=== PATIENT | male | born 1980 | race Caucasian/White ===

== ENCOUNTER 2017-02-08 16:18 | Emergency (ER) | payer SELFPAY ==
[~2017-02-08] VITALS: Ht 208.3 cm; Wt 93.0 kg
[2017-02-08 16:20] VITALS: BP 138/84; PULSE 82; RESP 20; TEMP 97.4; O2SAT 96
[2017-02-08 16:30] VITALS: BP 136/92; PULSE 80; RESP 18; O2SAT 99
--- NOTE | 2017-02-08 16:41 | PD ---
HPI Chief Complaint: Respiratory Distress Time Seen by Provider: 16:33 Travel History International Travel<30 days: No Contact w/Intl Traveler<30days: No Traveled to known affect area: No History of Present Illness HPI Healthy 36-year-old male here with complaint of shortness of breath and cough. Patient states that he has been ill for the last 2-3 weeks with cough, chest congestion. Cough is productive primarily of clear sputum. He denies any fevers or chills. Patient has noticed wheezing for the last 2 weeks. He denies any history of underlying lung disease, COPD, asthma, etc. No recent travel, sick contacts. Patient comes the ED with his mother today after multiple prompts from her to be seen. PFSH Past Medical History Medical History: Denies Significant Hx Social History Alcohol Use: Yes Tobacco Use: No Allergies-Medications (Allergen,Severity, Reaction): Coded Allergies: No Known Allergies (Verified Allergy, Unknown, 04/24/06) Reported Meds & Prescriptions Reported Meds & Active Scripts Active No Active Prescriptions or Reported Medications Review of Systems Except as stated in HPI: all other systems reviewed are Neg Physical Exam Narrative GENERAL: Well-appearing male in no acute distress SKIN: Warm and dry. HEAD: Normocephalic. EYES: No scleral icterus. No injection or drainage. ENT: Mucous membranes pink and moist. NECK: Supple CARDIOVASCULAR: Regular rate and rhythm. No murmur appreciated. RESPIRATORY: No accessory muscle use. Expiratory wheezing and rhonchi, decreased in right base GASTROINTESTINAL: Abdomen soft, non-tender, nondistended. MUSCULOSKELETAL: No obvious deformities. No edema. NEUROLOGICAL: Awake and alert. Normal speech. PSYCHIATRIC: Appropriate mood and affect; insight and judgment normal. Data Data Last Documented VS Vital Signs Date Time Temp Pulse Resp B/P Pulse Ox O2 Delivery O2 Flow Rate FiO2 02/08/17 16:30 80 18 136/92 99 02/08/17 16:20 97.4 Room Air Orders Iv Access Insert/Monitor (02/08/17 16:39) Oximetry (02/08/17 16:39) Chest, Single Ap (02/08/17 16:39) Sodium Chloride 0.9% Flush (Ns Flush) (02/08/17 16:45) Albuterol-Ipratropium Neb (Duoneb Neb) (3/17/17 16:45) MDM Medical Decision Making Medical Screen Exam Complete: Yes Emergency Medical Condition: Yes Medical Record Reviewed: Yes Differential Diagnosis 36-year-old male here with complaint of 2-3 weeks of cough, chest congestion, shortness of breath. Differential includes viral syndrome, pneumonia, influenza , new onset heart failure Narrative Course Patient placed on monitor, IV established. Given DuoNeb 3. Portal chest x- ray obtained that by my read shows no evidence of pneumonia. Patient felt improved after nebulizer therapy will be discharged home with MDI Diagnosis Primary Impression: Upper respiratory infection Qualified Code: J06.9 - Viral upper respiratory tract infection Additional Impressions: Viral syndrome Cough Wheezing Referrals: Primary Care Physician as needed Patient Instructions: General Instructions, Upper Respiratory Infection (ED) Additional Instructions: Albuterol inhaler as needed. Continue Mucinex. Med/Other Pt SpecificInfo: Prescription(s) given Scripts Albuterol 18 GM Inh (Ventolin Hfa 18 GM Inh)90 Mcg/Act Aer2 Puff INH Q4H PRN ( SHORTNESS OF BREATH) #1 INHALER Ref 0 Prov:Amber Mercer MD 02/08/17 Disposition: 01 DISCHARGE HOME Condition: Stable mAber Mercer MD Feb 08, 2017 16:41
[2017-02-08] MEDS ORDERED: SODIUM CHLORIDE 0.9% FLUSH 5 ML FLUSH IVF PRN (16:45)
--- NOTE | 2017-02-08 16:57 | RADRPT ---
EXAM DATE/TIME: 02/08/2017 16:42 [facility] COMPARISON: No previous studies available for comparison. INDICATIONS : Short of breath. MEDICAL HISTORY : None. SURGICAL HISTORY : None. ENCOUNTER: Initial ACUITY: 2 weeks PAIN SCORE: 7/10 LOCATION: Bilateral chest FINDINGS: A single view of the chest demonstrates the lungs to be symmetrically aerated without evidence of mas s, infiltrate or effusion. The cardiomediastinal contours are unremarkable. Osseous structures are intact. CONCLUSION: No acute disease. Harris Aparicio MD on February 08, 2017 at 16:55 Board Certified Radiologist. This report was verified electronically.
[2017-02-08] MEDS: RESP: ALBUTEROL 2.5 MG/IPRATROPIUM 0.5 MG NEB (SCH) INH (17:16)
[2017-02-08] MEDS ORDERED: VENTAER INH (17:42)
== END 2017-02-08 18:24 | disposition home or self-care (01) ==
LOC: NEPE 16:18
DX: J06.9 Acute upper respiratory infection, unspecified (principal); B34.9 Viral infection, unspecified; R05 Cough; R06.2 Wheezing
CPT/HCPCS: 71010; 94640; 94664; 99283